=== PATIENT | female | born 1965 | race African-American/Black ===

== ENCOUNTER 2016-12-13 12:55 | Emergency (ER) | payer MEDICAID ==
[~2016-12-13] VITALS: Ht 175.3 cm; Wt 107.0 kg
[~2016-12-13 12:55] MED LIST: ASPIRIN
[2016-12-13 13:23] VITALS: BP 148/103
[2016-12-13] MEDS ORDERED: ALBUTEROL (0.083%) 2.5MG/3ML NEB HHN ONE ×2 (13:45→15:00)
== END 2016-12-13 16:08 | disposition home or self-care (01) ==
LOC: ER 15:16
DX: J20.9 Acute bronchitis, unspecified (principal); F17.210 Nicotine dependence, cigarettes, uncomplicated
CPT/HCPCS: 94640; 99284; J7611

== ENCOUNTER 2018-06-28 17:09 | Emergency (ER) | payer MEDICAID ==
[~2018-06-28] VITALS: Ht 175.3 cm; Wt 113.0 kg
[2018-06-29] MEDS ORDERED: KETOROLAC 60MG/2ML VIAL IM ONE (03:45)
[2018-06-29 05:23] LABS: CLARITY URINE CLEAR (CLEAR); COLOR URINE YELLOW (YELLOW); KETONES URINE NEGATIVE (NEGATIVE); LEUKOCYTE ESTERASE URINE NEGATIVE (NEGATIVE); NITRITE URINE NEGATIVE (NEGATIVE); OCCULT BLOOD URINE NEGATIVE (NEGATIVE); PH URINE 5.5 (4.5-8.0); PROTEIN URINE NEGATIVE (NEGATIVE); SPECIFIC GRAVITY URINE 1.021 (1.005-1.030); UROBILINOGEN URINE 0.2 E.U./dL (0.2-1.0)
[2018-06-29 05:31] VITALS: BP 140/68
== END 2018-06-29 06:27 | disposition home or self-care (01) ==
LOC: ER 17:09
DX: R10.32 Left lower quadrant pain (principal)
CPT/HCPCS: 81003; 81025; 96372; 99283; J1885

== ENCOUNTER 2019-05-07 16:16 | Emergency (ER) | payer MEDICAID ==
[~2019-05-07] VITALS: Ht 175.3 cm; Wt 120.0 kg
[2019-05-07] MEDS ORDERED: IBUPROFEN 600MG TABLET PO ONE (17:45)
[2019-05-07 18:15] VITALS: BP 128/87
== END 2019-05-07 18:34 | disposition home or self-care (01) ==
LOC: ER 16:16
DX: G89.29 Other chronic pain (principal); M25.531 Pain in right wrist; M79.671 Pain in right foot; D64.9 Anemia, unspecified
CPT/HCPCS: 73100; 73630; 99283

== ENCOUNTER 2022-06-16 17:59 | Emergency (ER) | payer SELFPAY ==
[~2022-06-16] VITALS: Ht 170.2 cm; Wt 106.0 kg
[2022-06-16 18:15] VITALS: BP 135/80
[2022-06-17 00:15] LABS: BASOPHILS % 0.4 % (0.0-2.0); EOSINOPHILS % 1.3 % (0.0-5.0); HEMOGLOBIN. 13.1 g/dL (12.0-16.0); LYMPHOCYTES % 59.9 % (20.0-50.0); MEAN CORPUSCULAR HEMOGLOBIN 31.3 pg (28.0-32.0); MEAN CORPUSCULAR VOLUME 92.8 fL (81.0-99.0); MEAN PLATELET VOLUME 8.2 fl (7.4-10.4); MONOCYTES % 6.5 % (2.0-8.0); NEUTROPHILS % 31.9 % (40.0-76.0); PLATELET 256 x1000/uL (130-400); RED BLOOD CELL COUNT 4.21 mill/uL (4.2-5.4); RED CELL DISTRIBUTION WIDTH 14.6 % (11.6-14.6)
[2022-06-17 00:29] LABS: CHLORIDE 106 mEq/L (98-107)
[2022-06-17] MEDS ORDERED: HYDR-4001 MT (01:32)
[2022-06-17] MEDS ORDERED: PROT20 MT (01:32)
== END 2022-06-17 02:07 | disposition home or self-care (01) ==
LOC: ER 17:59
DX: K21.9 Gastro-esophageal reflux disease without esophagitis (principal)
CPT/HCPCS: 36415; 71045; 80053; 84484; 85025; 99284